=== PATIENT | male | born 1970 | race African-American/Black ===

== ENCOUNTER 2017-07-29 11:18 | Inpatient (IN) | payer MEDICAID ==
[2017-07-29] MEDS ORDERED: Aspirin 81 MG Tab.Chew PO ONE (11:32)
--- NOTE | 2017-07-29 11:32 | EDM.PDOC ---
ED HPI GENERAL MEDICAL PROBLEM - General Chief Complaint: Chest Pain Stated Complaint: CHEST PAIN VIA [facility] Time Seen by Provider: 07/29/17 11:35 Source of Information: Reports: Patient, EMS Notes Reviewed History Limitations: Reports: No Limitations - History of Present Illness INITIAL COMMENTS - FREE TEXT/NARRATIVE: pt has a recent history of a pneumonia. He is on augmentin for thAt. He has been at [facility] for 1 day, He states he has not been eating or drinking. The pneumonia was possibly caused by asperation Onset: Today, Other (left sided chest pain. ) Duration: Hour(s): Location: Reports: Chest Associated Symptoms: Reports: Chest Pain, Cough, Shortness of Breath, Other ( chest congestion) Anterior Chest Pain Score (Numeric/FACES): 7 - Related Data Allergies Allergy/AdvReac Type Severity Reaction Status Date / Time codeine Allergy Hives Verified 07/29/17 18:52 Home Meds: Home Meds Amoxicillin/Potassium Clav [Augmentin 875-125 Tablet] 875 mg PO BID 07/29/17 [ History] Gabapentin [Neurontin] 900 mg PO TID 07/29/17 [History] QUEtiapine Fumarate [Seroquel] 300 mg PO BID 07/29/17 [History] ED ROS GENERAL - Review of Systems Review Of Systems: See Below Constitutional: Reports: Decreased Appetite, Other (pt has not been eating or drinking in the hosp or at [place]. ) HEENT: Reports: No Symptoms Respiratory: Reports: Shortness of Breath Cardiovascular: Reports: Chest Pain, Other ( Hurts worse when he has ) Endocrine: Reports: No Symptoms GI/Abdominal: Reports: Decreased Appetite, Nausea : Reports: No Symptoms Musculoskeletal: Reports: No Symptoms Skin: Reports: No Symptoms Neurological: Reports: No Symptoms Psychiatric: Reports: Anxiety Hematologic/Lymphatic: Reports: No Symptoms ED EXAM, GENERAL - Physical Exam Exam: See Below Free Text/Narrative:: Pt arrived with left sided chest pain. He has been given nitro and torodol with no relieve. He is feeling congestion in his chest and is feeling somewhat sob. he is not eating or drinking. He is in treatment for herion abuse. Exam Limited By: No Limitations General Appearance: Alert, Anxious, Moderate Distress Ears: Normal TMs Nose: Normal Inspection Throat/Mouth: Normal Inspection Head: Atraumatic Respiratory/Chest: No Respiratory Distress Cardiovascular: Regular Rate, Rhythm GI/Abdominal: Soft, Non-Tender (Male) Exam: Deferred Rectal (Males) Exam: Deferred Back Exam: Normal Inspection Extremities: Normal Inspection Neurological: Alert, Oriented, Normal Cognition Psychiatric: Depressed Mood Course - Vital Signs Last Recorded V/S: Last Vital Signs Temp 37.0 C 07/30/17 07:09 Pulse 99 07/30/17 07:09 Resp 24 H 07/30/17 07:09 BP 144/104 H 07/30/17 07:09 Pulse Ox 96 07/30/17 07:09 - Orders/Labs/Meds Orders: Active Orders 24 hr Category Date Time Status RT Aerosol Therapy [RC] ASDIRECTED Care 07/29/17 13:16 Active Sodium Chloride 0.9% [Normal Saline] 1,000 ml Med 07/29/17 13:15 Active IV ASDIRECTED Sodium Chloride 0.9% [Normal Saline] 1,000 ml Med 07/29/17 16:15 Active IV ASDIRECTED EKG 12 Lead [EK] Routine Ther 07/29/17 11:30 Ordered Medication Orders Enoxaparin Sodium (Lovenox) 40 mg SUBCUT QD COUNTS INCLUDE 234 BEDS AT THE [facility] Gabapentin (Neurontin) 900 mg PO TID COUNTS INCLUDE 234 BEDS AT THE [facility] Last Admin: 07/29/17 20:30 Dose: 900 mg Sodium Chloride (Normal Saline) 1,000 mls @ 500 mls/hr IV ASDIRECTED COUNTS INCLUDE 234 BEDS AT THE [facility] Last Admin: 07/29/17 13:18 Dose: 500 mls/hr Sodium Chloride (Normal Saline) 1,000 mls @ 150 mls/hr IV ASDIRECTED COUNTS INCLUDE 234 BEDS AT THE [facility] Last Admin: 07/29/17 16:15 Dose: 150 mls/hr Ceftriaxone Sodium 1 gm/ (Sodium Chloride) 50 mls @ 100 mls/hr IV Q24H COUNTS INCLUDE 234 BEDS AT THE [facility] Last Admin: 07/29/17 20:35 Dose: 100 mls/hr Levofloxacin/Dextrose 500 mg/ (Premix) 100 mls @ 100 mls/hr IV Q24H COUNTS INCLUDE 234 BEDS AT THE [facility] Last Admin: 07/29/17 20:42 Dose: 100 mls/hr Lorazepam (Ativan) 0 mg PO ASDIRECTED QUEENIE PRN Reason: Protocol Last Admin: 07/30/17 00:27 Dose: 1 mg Lorazepam (Ativan) 0 mg IV ASDIRECTED QUEENIE PRN Reason: Protocol Last Admin: 07/30/17 05:46 Dose: 2 mg Admin: 07/30/17 03:32 Dose: 2 mg Admin: 07/30/17 00:59 Dose: 2 mg Quetiapine Fumarate (Seroquel) 300 mg PO BID QUEENIE Last Admin: 07/29/17 20:42 Dose: 300 mg Sodium Chloride (Saline Flush) 10 ml FLUSH ASDIRECTED PRN PRN Reason: Keep Vein Open Labs: Laboratory Tests 07/29/17 07/29/17 07/29/17 Range/Units 11:35 11:35 11:35 WBC 8.5 (4.5-11.0) K/uL RBC 5.56 (4.30-5.90) M/uL Hgb 14.8 (12.0-15.0) g/dL Hct 46.3 (40.0-54.0) % MCV 83 (80-98) fL MCH 27 (27-31) pg MCHC 32 (32-36) % Plt Count 335 (150-400) K/uL Neut % (Auto) 65 (36-66) % Lymph % (Auto) 19 L (24-44) % [place] % (Auto) 13 H (2-6) % Eos % (Auto) 1 L (2-4) % Baso % (Auto) 2 H (0-1) % Sodium 135 L (140-148) mmol/L Potassium 4.0 (3.6-5.2) mmol/L Chloride 101 (100-108) mmol/L Carbon Dioxide 25 (21-32) mmol/L Anion Gap 13.0 (5.0-14.0) mmol/L BUN 8 (7-18) mg/dL Creatinine 1.1 (0.8-1.3) mg/dL Est Cr Clr Drug Dosing 94.83 mL/min Estimated GFR (MDRD) > 60 (>60) Glucose 138 H (74-106) mg/dL Calcium 8.8 (8.5-10.1) mg/dL Total Bilirubin 0.4 (0.2-1.0) mg/dL AST 39 H (15-37) U/L ALT 55 (12-78) U/L Alkaline Phosphatase 168 H (46-116) U/L Creatine Kinase 278 (39-308) U/L Troponin I 0.023 (0.000-0.056) ng/mL C-Reactive Protein (0.0-0.3) mg/dL Total Protein 9.2 H (6.4-8.2) g/dL Albumin 3.0 L (3.4-5.0) g/dL Globulin 6.2 H (2.3-3.5) g/dL Albumin/Globulin Ratio 0.5 L (1.2-2.2) 07/29/17 07/29/17 Range/Units 11:55 14:45 WBC (4.5-11.0) K/uL RBC (4.30-5.90) M/uL Hgb (12.0-15.0) g/dL Hct (40.0-54.0) % MCV (80-98) fL MCH (27-31) pg MCHC (32-36) % Plt Count (150-400) K/uL Neut % (Auto) (36-66) % Lymph % (Auto) (24-44) % [place] % (Auto) (2-6) % Eos % (Auto) (2-4) % Baso % (Auto) (0-1) % Sodium (140-148) mmol/L Potassium (3.6-5.2) mmol/L Chloride (100-108) mmol/L Carbon Dioxide (21-32) mmol/L Anion Gap (5.0-14.0) mmol/L BUN (7-18) mg/dL Creatinine (0.8-1.3) mg/dL Est Cr Clr Drug Dosing mL/min Estimated GFR (MDRD) (>60) Glucose (74-106) mg/dL Calcium (8.5-10.1) mg/dL Total Bilirubin (0.2-1.0) mg/dL AST (15-37) U/L ALT (12-78) U/L Alkaline Phosphatase (46-116) U/L Creatine Kinase (39-308) U/L Troponin I 0.024 (0.000-0.056) ng/mL C-Reactive Protein 0.66 H (0.0-0.3) mg/dL Total Protein (6.4-8.2) g/dL Albumin (3.4-5.0) g/dL Globulin (2.3-3.5) g/dL Albumin/Globulin Ratio (1.2-2.2) Meds: Medications Generic Name Dose Route Start Last Admin Trade Name Li PRN Reason Stop Dose Admin Enoxaparin Sodium 40 mg 07/30/17 09:00 Lovenox SUBCUT QD QUEENIE Gabapentin 900 mg 07/29/17 21:00 07/29/17 20:30 Neurontin PO 900 mg TID QUEENIE Administration Sodium Chloride 1,000 mls @ 500 mls/hr 07/29/17 13:15 07/29/17 13:18 Normal Saline IV 500 mls/hr ASDIRECTED QUEENIE Administration Sodium Chloride 1,000 mls @ 150 mls/hr 07/29/17 16:15 07/29/17 16:15 Normal Saline IV 150 mls/hr ASDIRECTED QUEENIE Administration Ceftriaxone Sodium 1 gm/ 50 mls @ 100 mls/hr 07/29/17 18:30 07/29/17 20:35 Sodium Chloride IV 100 mls/hr Q24H QUEENIE Administration Levofloxacin/Dextrose 500 mg/ 100 mls @ 100 mls/hr 07/29/17 19:30 07/29/17 20 :42 Premix IV 100 mls/hr Q24H QUEENIE Administration Lorazepam 0 mg 07/30/17 00:15 07/30/17 00:27 Ativan PO 1 mg ASDIRECTED QUEENIE Administration Protocol Lorazepam 0 mg 07/30/17 00:15 07/30/17 05:46 Ativan IV 2 mg ASDIRECTED QUEENIE Administration Protocol Quetiapine Fumarate 300 mg 07/29/17 21:00 07/29/17 20:42 Seroquel PO 300 mg BID QUEENIE Administration Sodium Chloride 10 ml 07/29/17 18:23 Saline Flush FLUSH ASDIRECTED PRN Keep Vein Open Discontinued Medications Generic Name Dose Route Start Last Admin Trade Name Li PRN Reason Stop Dose Admin Albuterol 2.5 mg 07/29/17 13:16 07/29/17 13:49 Proventil Neb Soln NEB 07/29/17 13:17 2.5 mg ONETIME ONE Administration Aspirin 324 mg 07/29/17 11:32 07/29/17 12:34 Aspirin PO 07/29/17 11:33 Not Given ONETIME ONE Al Hydroxide/Mg Hydroxide 15 0 ml 07/29/17 17:10 07/29/17 17:33 ml/ Lidocaine HCl 15 ml PO 07/29/17 17:11 30 ml ONETIME ONE Administration Ketorolac Tromethamine 30 mg 07/29/17 13:14 07/29/17 13:25 Toradol IVPUSH 07/29/17 13:15 30 mg ONETIME ONE Administration Lorazepam 0.5 mg 07/29/17 14:41 07/29/17 16:13 Ativan IVPUSH 07/29/17 14:42 0.5 mg ONETIME ONE Administration Nitroglycerin 0.4 mg 07/29/17 14:46 07/29/17 16:14 Nitrostat SL 07/29/17 14:47 0.4 mg ONETIME ONE Administration Quetiapine Fumarate Confirm 07/29/17 20:28 07/29/17 20:42 Seroquel Administered 07/29/17 20:29 Not Given Dose 300 mg .ROUTE .[facility] ONE - Re-Assessments/Exams Free Text/Narrative Re-Assessment/Exam: 07/29/17 14:54 pt had no acute changes on his ekg. his cardiac enzymes are normal. his wbc is normal and his chest xray does not show a imnfiltrate. He continues to have pain at a 6. He will be given nitro to see if he gets relief. Because of the persistence of his pain Dr Narayanan was consulted for a possible observation. 07/30/17 07:45 Departure - Departure Time of Disposition: 07:10 Disposition: Admitted As Inpatient 67 Condition: Fair Clinical Impression: Atypical chest pain, Heroin addiction - My Orders Last 24 Hours: My Active Orders 07/29/17 11:30 EKG 12 Lead [EK] Routine 07/29/17 13:15 Sodium Chloride 0.9% [Normal Saline] 1,000 ml IV ASDIRECTED 07/29/17 13:16 RT Aerosol Therapy [RC] ASDIRECTED 07/29/17 16:15 Sodium Chloride 0.9% [Normal Saline] 1,000 ml IV ASDIRECTED - Assessment/Plan Last 24 Hours: My Active Orders 07/29/17 11:30 EKG 12 Lead [EK] Routine 07/29/17 13:15 Sodium Chloride 0.9% [Normal Saline] 1,000 ml IV ASDIRECTED 07/29/17 13:16 RT Aerosol Therapy [RC] ASDIRECTED 07/29/17 16:15 Sodium Chloride 0.9% [Normal Saline] 1,000 ml IV ASDIRECTED
--- NOTE | 2017-07-29 12:46 | CR ---
Chest 2V INDICATION: left sided chest pain. FINDINGS: Normal heart size. Lungs are clear. Postoperative changes right shoulder. Chest otherwise n egative.
[2017-07-29] MEDS ORDERED: Ketorolac 30 MG/ML SDV IVPUSH ONE (13:14)
[2017-07-29] MEDS ORDERED: Sodium Chloride 0.9% 1,000 ML IV SCH (13:15)
[2017-07-29] MEDS ORDERED: Albuterol 0.083% 2.5 MG/3 ML Neb Soln NEB ONE (13:16)
[2017-07-29] MEDS ORDERED: LORazepam 2 MG/ML MDV IVPUSH ONE (14:41)
[2017-07-29] MEDS ORDERED: Nitroglycerin 0.4 MG Tab.SL SL ONE (14:46)
[2017-07-29] MEDS: Sodium Chloride 0.9% 1,000 ML IV SCH (16:15)
[2017-07-29] MEDS ORDERED: Alum Hydrox/Mag Hydrox/Simeth 15 ML, Lidocaine 2% 15 ML PO ONE ×2 (17:10)
--- NOTE | 2017-07-29 18:08 | PCM.HP ---
H&P History of Present Illness - General Date of Service: 07/29/17 Source of Information: Patient History Limitations: Reports: No Limitations - History of Present Illness Initial Comments - Free Text/Narative: Having heavy chest pain for 5 hrs. Worse with breathing with a pain level 8/ 10. Has a history of a [place] and was air lifted to [place]. He has no knowledge of what they did in [place]. he has no momory of if thy had an angiogram but they did not do surgery. He had nausea and vomited. Onset of Symptoms: Reports: Today, Sudden Duration of Symptoms: Reports: Hour(s): Severity: Severe Improves with: Reports: Rest Worsens with: Reports: Breathing, Other (or coughing) Associated Symptoms: Reports: Chest Pain, Nausea/Vomiting Anterior Chest Pain Score (Numeric/FACES): 7 - Related Data Allergies/Adverse Reactions: Allergies Allergy/AdvReac Type Severity Reaction Status Date / Time codeine Allergy Hives Verified 07/29/17 18:52 Home Medications: Home Meds Amoxicillin/Potassium Clav [Augmentin 875-125 Tablet] 875 mg PO BID 07/29/17 [ History] Gabapentin [Neurontin] 900 mg PO TID 07/29/17 [History] QUEtiapine Fumarate [Seroquel] 300 mg PO BID 07/29/17 [History] Past Medical History Cardiovascular History: Reports: Arrhythmia Respiratory History: Reports: Other (See Below) Other Respiratory History: recently in hospital for aspiration pneumonia Gastrointestinal History: Reports: GERD Musculoskeletal History: Reports: Amputation Psychiatric History: Reports: ADD, ADHD, Addiction, Other (See Below) Other Psychiatric History: heroine and mariujuana addiction - Past Surgical History GI Surgical History: Reports: None Musculoskeletal Surgical History: Reports: Amputation Other Musculoskeletal Surgeries/Procedures:: 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 Social & Family History - Family History Family Medical History: Noncontributory - Tobacco Use Smoking Status *Q: Current Every Day Smoker Years of Tobacco use: 35 Packs/Tins Daily: 1 Second Hand Smoke Exposure: Yes - Caffeine Use Caffeine Use: Reports: None - Recreational Drug Use Recreational Drug Use: Yes Drug Use in Last 12 Months: Yes Recreational Drug Type: Reports: Heroin, Marijuana/Hashish Recreational Drug Use Frequency: Daily H&P Review of Systems - Review of Systems: Review Of Systems: See Below General: Reports: No Symptoms HEENT: Reports: No Symptoms Pulmonary: Reports: Shortness of Breath Cardiovascular: Reports: Chest Pain, Palpitations, Dyspnea on Exertion Gastrointestinal: Reports: Abdominal Pain, Diarrhea, Nausea Genitourinary: Reports: Retention Musculoskeletal: Reports: Foot Pain Skin: Reports: No Symptoms Neurological: Reports: Difficulty Walking, Gait Disturbance Exam - Exam Exam: See Below - Vital Signs Vital Signs: Last Vital Signs Temp 99.0 F 07/29/17 12:16 Pulse 67 07/29/17 15:59 Resp 16 07/29/17 14:00 BP 150/78 H 07/29/17 16:14 Pulse Ox 97 07/29/17 15:59 Weight: 180 lb - Exam General: Alert, Oriented, Moderate Distress HEENT: PERRLA, Hearing Intact, Mucosa Moist & [place], Nares Patent, Normal Nasal Septum, Posterior Pharynx Clear, Conjunctiva Clear, EOMI, EACs Clear, TMs Clear Neck: Supple, Trachea Midline, 2 Lungs: Rhonchi Cardiovascular: Regular Rate, Regular Rhythm GI/Abdominal Exam: Normal Bowel Sounds, Soft, Non-Tender, No Organomegaly, No Distention, No Abnormal Bruit, No Mass, Pelvis Stable Extremities: Other (Loss of right foot due to infection of the bone.) Peripheral Pulses: 1+: Radial (L), Radial (R) Skin: Warm, Dry, Intact Neuro Extensive - Mental Status: Oriented x3, Normal Cognition, Memory Intact DTR: 1+: Bicep (L), Bicep (R) Psychiatric: Alert, Normal Affect, Normal Mood - Patient Data Lab Results Last 24 hrs: Laboratory Results - last 24 hr 07/29/17 07/29/17 07/29/17 Range/Units 11:35 11:35 11:35 WBC 8.5 (4.5-11.0) K/uL RBC 5.56 (4.30-5.90) M/uL Hgb 14.8 (12.0-15.0) g/dL Hct 46.3 (40.0-54.0) % MCV 83 (80-98) fL MCH 27 (27-31) pg MCHC 32 (32-36) % Plt Count 335 (150-400) K/uL Neut % (Auto) 65 (36-66) % Lymph % (Auto) 19 L (24-44) % [place] % (Auto) 13 H (2-6) % Eos % (Auto) 1 L (2-4) % Baso % (Auto) 2 H (0-1) % Sodium 135 L (140-148) mmol/L Potassium 4.0 (3.6-5.2) mmol/L Chloride 101 (100-108) mmol/L Carbon Dioxide 25 (21-32) mmol/L Anion Gap 13.0 (5.0-14.0) mmol/L BUN 8 (7-18) mg/dL Creatinine 1.1 (0.8-1.3) mg/dL Est Cr Clr Drug Dosing 94.83 mL/min Estimated GFR (MDRD) > 60 (>60) Glucose 138 H (74-106) mg/dL Calcium 8.8 (8.5-10.1) mg/dL Total Bilirubin 0.4 (0.2-1.0) mg/dL AST 39 H (15-37) U/L ALT 55 (12-78) U/L Alkaline Phosphatase 168 H (46-116) U/L Creatine Kinase 278 (39-308) U/L Troponin I 0.023 (0.000-0.056) ng/mL C-Reactive Protein (0.0-0.3) mg/dL Total Protein 9.2 H (6.4-8.2) g/dL Albumin 3.0 L (3.4-5.0) g/dL Globulin 6.2 H (2.3-3.5) g/dL Albumin/Globulin Ratio 0.5 L (1.2-2.2) 07/29/17 07/29/17 Range/Units 11:55 14:45 WBC (4.5-11.0) K/uL RBC (4.30-5.90) M/uL Hgb (12.0-15.0) g/dL Hct (40.0-54.0) % MCV (80-98) fL MCH (27-31) pg MCHC (32-36) % Plt Count (150-400) K/uL Neut % (Auto) (36-66) % Lymph % (Auto) (24-44) % [place] % (Auto) (2-6) % Eos % (Auto) (2-4) % Baso % (Auto) (0-1) % Sodium (140-148) mmol/L Potassium (3.6-5.2) mmol/L Chloride (100-108) mmol/L Carbon Dioxide (21-32) mmol/L Anion Gap (5.0-14.0) mmol/L BUN (7-18) mg/dL Creatinine (0.8-1.3) mg/dL Est Cr Clr Drug Dosing mL/min Estimated GFR (MDRD) (>60) Glucose (74-106) mg/dL Calcium (8.5-10.1) mg/dL Total Bilirubin (0.2-1.0) mg/dL AST (15-37) U/L ALT (12-78) U/L Alkaline Phosphatase (46-116) U/L Creatine Kinase (39-308) U/L Troponin I 0.024 (0.000-0.056) ng/mL C-Reactive Protein 0.66 H (0.0-0.3) mg/dL Total Protein (6.4-8.2) g/dL Albumin (3.4-5.0) g/dL Globulin (2.3-3.5) g/dL Albumin/Globulin Ratio (1.2-2.2) Result Diagrams: 07/30/17 05:55 07/30/17 05:55 *Q Meaningful Use (ADM) - VTE *Q VTE Criteria *Q: - Stroke *Q Stroke Criteria *Q: - AMI *Q AMI Criteria *Q: Problem List Initiated/Reviewed/Updated: Yes Orders Last 24hrs: Active Orders 24 hr Category Date Time Status EKG Documentation Completion [RC] ASDIRECTED Care 07/29/17 11:30 Active RT Aerosol Therapy [RC] ASDIRECTED Care 07/29/17 13:16 Active DRUG SCREEN, URINE [URCHEM] Stat Lab 07/29/17 11:31 Uncollected UA W/MICROSCOPIC [URIN] Urgent Lab 07/29/17 11:29 Uncollected Sodium Chloride 0.9% [Normal Saline] 1,000 ml Med 07/29/17 13:15 Active IV ASDIRECTED Sodium Chloride 0.9% [Normal Saline] 1,000 ml Med 07/29/17 16:15 Active IV ASDIRECTED EKG 12 Lead [EK] Routine Ther 07/29/17 11:30 Ordered Medication Orders Sodium Chloride (Normal Saline) 1,000 mls @ 500 mls/hr IV ASDIRECTED [facility] Last Admin: 07/29/17 13:18 Dose: 500 mls/hr Sodium Chloride (Normal Saline) 1,000 mls @ 150 mls/hr IV ASDIRECTED [facility] Last Admin: 07/29/17 16:15 Dose: 150 mls/hr Assessment/Plan Comment:: Assessment/plan: Angina- non cardiac. I feel secondary to lung problems and withdraw. He does have a history of a heart problem of unknown severity #2. Bipolar disorder: Will continue with seroquel. #3. Loss of right foot. having pain will continue with Gabapentin. #4. Drug Addition: Heroin 1/2 gram daily IV and or PO. #5. History of Pneumonia. Om Amox.
[2017-07-29] MEDS ORDERED: Sodium Chloride 0.9% 10 ML Syringe FLUSH PRN (18:23)
[2017-07-29] MEDS ORDERED: QUEtiapine 100 MG Tab ONE (20:28)
[2017-07-29] MEDS: Gabapentin 300 MG Cap PO SCH (20:30)
[2017-07-29] MEDS: cefTRIAXone 1 GM in Sodium Chloride 0.9% 50 ML IV SCH (20:35)
[2017-07-29] MEDS: Levofloxacin/Dextrose 5%-Water 500 MG in Premix Bag 1 BAG IV SCH (20:42)
[2017-07-30] MEDS: LORazepam 1 MG Tab PO SCH ×4 (00:27→20:38)
[2017-07-30] MEDS: LORazepam 2 MG/ML MDV IV SCH ×4 (00:59→22:01)
[2017-07-30] MEDS: cloNIDine 0.1 MG Tab PO PRN ×2 (09:26→14:05)
[2017-07-30] MEDS: Gabapentin 300 MG Cap PO SCH ×3 (09:26→20:37)
[2017-07-30] MEDS: Enoxaparin 40 MG/0.4 ML Syringe SUBCUT SCH (10:03)
--- NOTE | 2017-07-30 13:19 | PCM.PN ---
- General Info Date of Service: 07/30/17 Admission Dx/Problem (Free Text): He has and is having withdrawal reactions from Heroin having abdominal pain and anxiety. Functional Status: Reports: Pain Controlled - Review of Systems General: Reports: Weakness HEENT: Reports: No Symptoms Pulmonary: Reports: Cough Cardiovascular: Reports: No Symptoms Gastrointestinal: Reports: Abdominal Pain Genitourinary: Reports: No Symptoms Musculoskeletal: Reports: No Symptoms Skin: Reports: No Symptoms Neurological: Reports: No Symptoms Psychiatric: Reports: Depression - Patient Data Vitals - Most Recent: Last Vital Signs Temp 99 F 07/30/17 11:44 Pulse 110 H 07/30/17 11:44 Resp 28 H 07/30/17 11:44 BP 143/93 H 07/30/17 11:44 Pulse Ox 97 07/30/17 11:44 Weight - Most Recent: 177 lb 12.8 oz I&O - Last 24 Hours: Intake & Output 07/29/17 07/30/17 07/30/17 22:59 06:59 14:59 Intake Total 150 864 720 Output Total 300 2000 1225 Balance -150 -6573 -569 Lab Results Last 24 Hours: Laboratory Results - last 24 hr 07/29/17 07/29/17 07/30/17 Range/Units 20:47 20:47 05:55 WBC 10.1 (4.5-11.0) K/uL RBC 5.16 (4.30-5.90) M/uL Hgb 13.7 (12.0-15.0) g/dL Hct 42.8 (40.0-54.0) % MCV 83 (80-98) fL MCH 27 (27-31) pg MCHC 32 (32-36) % Plt Count 306 (150-400) K/uL Neut % (Auto) 65 (36-66) % Lymph % (Auto) 20 L (24-44) % Dolores % (Auto) 14 H (2-6) % Eos % (Auto) 1 L (2-4) % Baso % (Auto) 1 (0-1) % Sodium (140-148) mmol/L Potassium (3.6-5.2) mmol/L Chloride (100-108) mmol/L Carbon Dioxide (21-32) mmol/L Anion Gap (5.0-14.0) mmol/L BUN (7-18) mg/dL Creatinine (0.8-1.3) mg/dL Est Cr Clr Drug Dosing mL/min Estimated GFR (MDRD) (>60) Glucose (74-106) mg/dL Calcium (8.5-10.1) mg/dL Urine Color [place] Urine Appearance Clear Urine pH 9.0 H (4.5-8.0) Ur Specific [place] 1.015 (1.008-1.030) Urine Protein Negative (NEGATIVE) mg/dL Urine Glucose (UA) Normal (NEGATIVE) mg/dL Urine Ketones Negative (NEGATIVE) mg/dL Urine Occult Blood Negative (NEGATIVE) Urine Nitrite Negative (NEGAITVE) Urine Bilirubin Negative (NEGATIVE) Urine Urobilinogen Normal (NORMAL) mg/dL Ur Leukocyte Esterase Negative (NEGATIVE) Urine RBC 0-5 (0-5) Urine WBC 0-5 (0-5) Ur Epithelial Cells Few Amorphous Sediment Few Urine Bacteria Rare Urine Mucus Numerous Urine Opiates Screen Positive H (NEGATIVE) Ur Oxycodone Screen Negative (NEGATIVE) Urine Methadone Screen Negative (NEGATIVE) Ur Propoxyphene Screen Negative (NEGATIVE) Ur Barbiturates Screen Negative (NEGATIVE) Ur Tricyclics Screen Negative (NEGATIVE) Ur Phencyclidine Scrn Negative (NEGATIVE) Ur Amphetamine Screen Negative (NEGATIVE) U Methamphetamines Scrn Negative (NEGATIVE) Urine MDMA Screen Negative (NEGATIVE) U Benzodiazepines Scrn Positive H (NEGATIVE) U Cocaine Metab Screen Negative (NEGATIVE) U Marijuana (THC) Screen Positive H (NEGATIVE) 07/30/17 Range/Units 05:55 WBC (4.5-11.0) K/uL RBC (4.30-5.90) M/uL Hgb (12.0-15.0) g/dL Hct (40.0-54.0) % MCV (80-98) fL MCH (27-31) pg MCHC (32-36) % Plt Count (150-400) K/uL Neut % (Auto) (36-66) % Lymph % (Auto) (24-44) % Dolores % (Auto) (2-6) % Eos % (Auto) (2-4) % Baso % (Auto) (0-1) % Sodium 138 L (140-148) mmol/L Potassium 3.8 (3.6-5.2) mmol/L Chloride 107 (100-108) mmol/L Carbon Dioxide 24 (21-32) mmol/L Anion Gap 10.8 (5.0-14.0) mmol/L BUN 8 (7-18) mg/dL Creatinine 0.8 (0.8-1.3) mg/dL Est Cr Clr Drug Dosing 129.77 mL/min Estimated GFR (MDRD) > 60 (>60) Glucose 113 H (74-106) mg/dL Calcium 8.3 L (8.5-10.1) mg/dL Urine Color Urine Appearance Urine pH (4.5-8.0) Ur Specific [place] (1.008-1.030) Urine Protein (NEGATIVE) mg/dL Urine Glucose (UA) (NEGATIVE) mg/dL Urine Ketones (NEGATIVE) mg/dL Urine Occult Blood (NEGATIVE) Urine Nitrite (NEGAITVE) Urine Bilirubin (NEGATIVE) Urine Urobilinogen (NORMAL) mg/dL Ur Leukocyte Esterase (NEGATIVE) Urine RBC (0-5) Urine WBC (0-5) Ur Epithelial Cells Amorphous Sediment Urine Bacteria Urine Mucus Urine Opiates Screen (NEGATIVE) Ur Oxycodone Screen (NEGATIVE) Urine Methadone Screen (NEGATIVE) Ur Propoxyphene Screen (NEGATIVE) Ur Barbiturates Screen (NEGATIVE) Ur Tricyclics Screen (NEGATIVE) Ur Phencyclidine Scrn (NEGATIVE) Ur Amphetamine Screen (NEGATIVE) U Methamphetamines Scrn (NEGATIVE) Urine MDMA Screen (NEGATIVE) U Benzodiazepines Scrn (NEGATIVE) U Cocaine Metab Screen (NEGATIVE) U Marijuana (THC) Screen (NEGATIVE) Med Orders - Current: Current Medications Clonidine HCl (Catapres) 0.1 mg PO Q4H PRN PRN Reason: Withdrawal Symptoms Last Admin: 07/30/17 09:26 Dose: 0.1 mg Enoxaparin Sodium (Lovenox) 40 mg SUBCUT QD [facility] Last Admin: 07/30/17 10:03 Dose: Not Given Gabapentin (Neurontin) 900 mg PO TID [facility] Last Admin: 07/30/17 09:26 Dose: 900 mg Sodium Chloride (Normal Saline) 1,000 mls @ 500 mls/hr IV ASDIRECTED [facility] Last Admin: 07/29/17 13:18 Dose: 500 mls/hr Sodium Chloride (Normal Saline) 1,000 mls @ 150 mls/hr IV ASDIRECTED [facility] Last Admin: 07/29/17 16:15 Dose: 150 mls/hr Ceftriaxone Sodium 1 gm/ (Sodium Chloride) 50 mls @ 100 mls/hr IV Q24H [facility] Last Admin: 07/29/17 20:35 Dose: 100 mls/hr Levofloxacin/Dextrose 500 mg/ (Premix) 100 mls @ 100 mls/hr IV Q24H [facility] Last Admin: 07/29/17 20:42 Dose: 100 mls/hr Lorazepam (Ativan) 0 mg PO ASDIRECTED [facility] PRN Reason: Protocol Last Admin: 07/30/17 09:45 Dose: 2 mg Lorazepam (Ativan) 0 mg IV ASDIRECTED [facility] PRN Reason: Protocol Last Admin: 07/30/17 05:46 Dose: 2 mg Ondansetron HCl (Zofran Odt) 4 mg PO Q4H PRN PRN Reason: Nausea/Vomiting Quetiapine Fumarate (Seroquel) 300 mg PO BID [facility] Last Admin: 07/30/17 09:27 Dose: 300 mg Sodium Chloride (Saline Flush) 10 ml FLUSH ASDIRECTED PRN PRN Reason: Keep Vein Open Discontinued Medications Albuterol (Proventil Neb Soln) 2.5 mg NEB ONETIME ONE Stop: 07/29/17 13:17 Last Admin: 07/29/17 13:49 Dose: 2.5 mg Aspirin (Aspirin) 324 mg PO ONETIME ONE Stop: 07/29/17 11:33 Last Admin: 07/29/17 12:34 Dose: Not Given Al Hydroxide/Mg Hydroxide 15 (ml/ Lidocaine HCl 15 ml) 0 ml PO ONETIME ONE Stop: 07/29/17 17:11 Last Admin: 07/29/17 17:33 Dose: 30 ml Ketorolac Tromethamine (Toradol) 30 mg IVPUSH ONETIME ONE Stop: 07/29/17 13:15 Last Admin: 07/29/17 13:25 Dose: 30 mg Lorazepam (Ativan) 0.5 mg IVPUSH ONETIME ONE Stop: 07/29/17 14:42 Last Admin: 07/29/17 16:13 Dose: 0.5 mg Nitroglycerin (Nitrostat) 0.4 mg SL ONETIME ONE Stop: 07/29/17 14:47 Last Admin: 07/29/17 16:14 Dose: 0.4 mg Quetiapine Fumarate (Seroquel) Confirm Administered Dose 300 mg .ROUTE .STK-MED ONE Stop: 07/29/17 20:29 Last Admin: 07/29/17 20:42 Dose: Not Given - Exam General: Alert, Oriented HEENT: Pupils Equal, Pupils Reactive, EOMI, Mucous Membr. Moist/[place] Neck: Supple Lungs: Clear to Auscultation, Normal Respiratory Effort Cardiovascular: Regular Rate, Regular Rhythm GI/Abdominal Exam: Normal Bowel Sounds, Soft, Non-Tender, No Organomegaly, No Distention, No Abnormal Bruit, No Mass, Pelvis Stable Extremities: Normal Inspection, Normal Range of Motion, Non-Tender, No Pedal Edema, Normal Capillary Refill Peripheral Pulses: 1+: Radial (L), Radial (R) Skin: Warm, Dry, Intact - Problem List Review Problem List Initiated/Reviewed/Updated: Yes - My Orders Last 24 Hours: My Active Orders 07/29/17 18:30 cefTRIAXone [Rocephin] 1 gm Sodium Chloride 0.9% [Normal Saline] 50 ml IV Q24H 07/29/17 18:31 RT Acapella [RESPCARE] Routine 07/29/17 18:33 CULTURE RESPIRATORY + SMEAR [RM] Routine 07/29/17 19:30 Levofloxacin/Dextrose 5%-Water [Levaquin in D5W 500 MG/100 ML] 500 mg Premix Bag 1 bag IV Q24H 07/29/17 21:00 Gabapentin [Neurontin] 900 mg PO TID QUEtiapine [SEROquel] 300 mg PO BID 07/30/17 00:13 CIWAA Assessment [RC] Q4H 07/30/17 00:15 Notify Provider [RC] PRN LORazepam [Ativan] See Protocol IV ASDIRECTED LORazepam [Ativan] See Protocol PO ASDIRECTED 07/30/17 09:11 cloNIDine [Catapres] 0.1 mg PO Q4H PRN 07/30/17 09:13 Vital Signs [RC] Q4H 07/30/17 10:20 Ondansetron [Zofran ODT] 4 mg PO Q4H PRN - Plan Plan:: Assessment/plan: Angina- non cardiac. I feel secondary to lung problems and withdraw. He does have a history of a heart problem of unknown severity #2. Bipolar disorder: Will continue with seroquel. #3. Loss of right foot. having pain will continue with Gabapentin. #4. Drug Addition: Heroin 1/2 gram daily IV and or PO. #5. History of Pneumonia. Will continue with Rocephin and Levaquin. His lungs have improved significantly.
[2017-07-30] MEDS: cefTRIAXone 1 GM in Sodium Chloride 0.9% 50 ML IV SCH (18:21)
[2017-07-30] MEDS: Levofloxacin/Dextrose 5%-Water 500 MG in Premix Bag 1 BAG IV SCH (20:37)
[2017-07-31] MEDS: Sodium Chloride 0.9% 1,000 ML IV SCH ×2 (02:45→09:26)
[2017-07-31] MEDS: LORazepam 2 MG/ML MDV IV SCH (05:36)
[2017-07-31] MEDS: Enoxaparin 40 MG/0.4 ML Syringe SUBCUT SCH (08:31)
[2017-07-31] MEDS: LORazepam 1 MG Tab PO SCH ×4 (08:31→20:03)
[2017-07-31] MEDS: Gabapentin 300 MG Cap PO SCH ×3 (08:32→20:10)
--- NOTE | 2017-07-31 10:11 | CR ---
Chest 2V HISTORY: pneumonia COMPARISON: 07/29/2017 FINDINGS: Lungs appear clear and normally aerated. Cardiomediastinal silhouette is within normal limits. No vas cular redistribution or pleural fluid can be seen. Bony structures and soft tissues are unremarkable. IMPRESSION: No acute chest abnormality or significant interval change is identified.
--- NOTE | 2017-07-31 18:46 | PCM.PN ---
- General Info Date of Service: 07/31/17 Functional Status: Reports: Pain Controlled - Review of Systems General: Reports: No Symptoms HEENT: Reports: No Symptoms Pulmonary: Reports: No Symptoms Cardiovascular: Reports: No Symptoms Gastrointestinal: Reports: Abdominal Pain Genitourinary: Reports: No Symptoms Musculoskeletal: Reports: No Symptoms Skin: Reports: No Symptoms Neurological: Reports: No Symptoms Psychiatric: Reports: Anxiety, Agitation - Patient Data Vitals - Most Recent: Last Vital Signs Temp 98.8 F 07/31/17 18:02 Pulse 94 07/31/17 18:02 Resp 16 07/31/17 18:02 BP 140/85 07/31/17 18:02 Pulse Ox 100 07/31/17 18:02 Weight - Most Recent: 178 lb I&O - Last 24 Hours: Intake & Output 07/31/17 07/31/17 07/31/17 06:59 14:59 22:59 Intake Total 1334 120 240 Output Total 1425 1200 150 Balance -91 -1080 90 Med Orders - Current: Current Medications Clonidine HCl (Catapres) 0.1 mg PO Q4H PRN PRN Reason: Withdrawal Symptoms Last Admin: 07/30/17 14:05 Dose: 0.1 mg Enoxaparin Sodium (Lovenox) 40 mg SUBCUT DAILY [facility] Gabapentin (Neurontin) 900 mg PO TID [facility] Last Admin: 07/31/17 13:29 Dose: 900 mg Sodium Chloride (Normal Saline) 1,000 mls @ 150 mls/hr IV ASDIRECTED [facility] Last Admin: 07/31/17 09:26 Dose: 150 mls/hr Lorazepam (Ativan) 0 mg PO ASDIRECTED [facility] PRN Reason: Protocol Last Admin: 07/31/17 17:58 Dose: 1 mg Nicotine (Habitrol) 7 mg TRDERM DAILY [facility] Ondansetron HCl (Zofran Odt) 4 mg PO Q4H PRN PRN Reason: Nausea/Vomiting Quetiapine Fumarate (Seroquel) 300 mg PO BID [facility] Last Admin: 07/31/17 08:38 Dose: 300 mg Sodium Chloride (Saline Flush) 10 ml FLUSH ASDIRECTED PRN PRN Reason: Keep Vein Open Discontinued Medications Albuterol (Proventil Neb Soln) 2.5 mg NEB ONETIME ONE Stop: 07/29/17 13:17 Last Admin: 07/29/17 13:49 Dose: 2.5 mg Aspirin (Aspirin) 324 mg PO ONETIME ONE Stop: 07/29/17 11:33 Last Admin: 07/29/17 12:34 Dose: Not Given Al Hydroxide/Mg Hydroxide 15 (ml/ Lidocaine HCl 15 ml) 0 ml PO ONETIME ONE Stop: 07/29/17 17:11 Last Admin: 07/29/17 17:33 Dose: 30 ml Enoxaparin Sodium (Lovenox) 40 mg SUBCUT QD [facility] Last Admin: 07/31/17 08:31 Dose: 40 mg Sodium Chloride (Normal Saline) 1,000 mls @ 500 mls/hr IV ASDIRECTED [facility] Last Admin: 07/29/17 13:18 Dose: 500 mls/hr Ceftriaxone Sodium 1 gm/ (Sodium Chloride) 50 mls @ 100 mls/hr IV Q24H [facility] Last Admin: 07/30/17 18:21 Dose: 100 mls/hr Levofloxacin/Dextrose 500 mg/ (Premix) 100 mls @ 100 mls/hr IV Q24H [facility] Last Admin: 07/30/17 20:37 Dose: 100 mls/hr Ketorolac Tromethamine (Toradol) 30 mg IVPUSH ONETIME ONE Stop: 07/29/17 13:15 Last Admin: 07/29/17 13:25 Dose: 30 mg Lorazepam (Ativan) 0.5 mg IVPUSH ONETIME ONE Stop: 07/29/17 14:42 Last Admin: 07/29/17 16:13 Dose: 0.5 mg Lorazepam (Ativan) 0 mg IV ASDIRECTED [facility] PRN Reason: Protocol Last Admin: 07/31/17 05:36 Dose: 2 mg Nitroglycerin (Nitrostat) 0.4 mg SL ONETIME ONE Stop: 07/29/17 14:47 Last Admin: 07/29/17 16:14 Dose: 0.4 mg Quetiapine Fumarate (Seroquel) Confirm Administered Dose 300 mg .ROUTE .STK-MED ONE Stop: 07/29/17 20:29 Last Admin: 07/29/17 20:42 Dose: Not Given - Exam General: Alert, Oriented, Moderate Distress HEENT: Pupils Equal, Pupils Reactive, EOMI, Mucous Membr. Moist/[place] Neck: Supple Lungs: Clear to Auscultation, Normal Respiratory Effort Cardiovascular: Regular Rate, Regular Rhythm GI/Abdominal Exam: Soft Extremities: Normal Inspection, Normal Range of Motion, Non-Tender, No Pedal Edema, Normal Capillary Refill Peripheral Pulses: 1+: Radial (L), Radial (R) Skin: Warm, Dry, Intact Psy/Mental Status: Anxious, Agitated - Problem List Review Problem List Initiated/Reviewed/Updated: Yes - My Orders Last 24 Hours: My Active Orders 07/31/17 18:06 Transfer Patient (Change bed) [ADT] Routine 07/31/17 18:15 Nicotine [Habitrol] 7 mg TRDERM DAILY 07/31/17 18:16 Discontinue Saline Lock [Peripheral IV Discontinue] [OM.PC] Routine 08/01/17 08:00 Consult to Psychiatric Intake Coord [Behavioral Health Evaluation] [CONS] Routine 08/01/17 09:00 Enoxaparin [Lovenox] 40 mg SUBCUT DAILY - Plan Plan:: Assessment/plan: Angina- Resolved. #2. Bipolar disorder: Will continue with Seroquel. #3. Loss of right foot. having pain will continue with Gabapentin. #4. Drug Addition: Heroin 1/2 gram daily IV and or PO. #5. History of Pneumonia. Resolved. The CXR was negative so I feel he had more of an Acute Bronchitis. Have DC antibiotics. He became upset as [facility] would not take him back as he has detoxed presently. He threatened suicide and have now moved him down to the ICU until he is cleared by PSY in the morning.
[2017-07-31] MEDS: cloNIDine 0.1 MG Tab PO PRN (18:58)
[2017-07-31] MEDS: Nicotine 7 MG/24 Hr Patch TRDERM SCH (20:12)
[2017-07-31] MEDS: Ondansetron 4 MG Tab.DIS PO PRN (22:43)
[2017-08-01] MEDS: Ondansetron 4 MG Tab.DIS PO PRN ×2 (04:55→21:23)
[2017-08-01] MEDS: LORazepam 1 MG Tab PO SCH ×4 (05:15→22:34)
[2017-08-01] MEDS: Nicotine 7 MG/24 Hr Patch TRDERM SCH (10:27)
[2017-08-01] MEDS: Gabapentin 300 MG Cap PO SCH ×3 (10:29→20:11)
[2017-08-01] MEDS: Enoxaparin 40 MG/0.4 ML Syringe SUBCUT SCH (10:30)
--- NOTE | 2017-08-01 11:39 | PCM.PN ---
- General Info Date of Service: 08/01/17 Functional Status: Reports: Pain Controlled - Review of Systems General: Reports: No Symptoms HEENT: Reports: No Symptoms Pulmonary: Reports: No Symptoms Cardiovascular: Reports: No Symptoms Gastrointestinal: Reports: No Symptoms Genitourinary: Reports: No Symptoms Musculoskeletal: Reports: No Symptoms Skin: Reports: No Symptoms Neurological: Reports: No Symptoms Psychiatric: Reports: Anxiety - Patient Data Vitals - Most Recent: Last Vital Signs Temp 97.6 F 08/01/17 08:50 Pulse 76 08/01/17 08:50 Resp 20 08/01/17 08:50 BP 121/63 08/01/17 08:50 Pulse Ox 96 08/01/17 08:50 Weight - Most Recent: 178 lb I&O - Last 24 Hours: Intake & Output 07/31/17 08/01/17 08/01/17 22:59 06:59 14:59 Intake Total 2150 700 Output Total 1050 600 Balance 1100 100 Med Orders - Current: Current Medications Clonidine HCl (Catapres) 0.1 mg PO Q4H PRN PRN Reason: Withdrawal Symptoms Last Admin: 07/31/17 18:58 Dose: 0.1 mg Enoxaparin Sodium (Lovenox) 40 mg SUBCUT DAILY [facility] Last Admin: 08/01/17 10:30 Dose: 40 mg Gabapentin (Neurontin) 900 mg PO TID [facility] Last Admin: 08/01/17 10:29 Dose: 900 mg Sodium Chloride (Normal Saline) 1,000 mls @ 150 mls/hr IV ASDIRECTED [facility] Last Admin: 07/31/17 09:26 Dose: 150 mls/hr Lorazepam (Ativan) 0 mg PO ASDIRECTED [facility] PRN Reason: Protocol Last Admin: 08/01/17 05:15 Dose: 1 mg Nicotine (Habitrol) 7 mg TRDERM DAILY [facility] Last Admin: 08/01/17 10:27 Dose: 7 mg Ondansetron HCl (Zofran Odt) 4 mg PO Q4H PRN PRN Reason: Nausea/Vomiting Last Admin: 08/01/17 04:55 Dose: 4 mg Quetiapine Fumarate (Seroquel) 300 mg PO BID [facility] Last Admin: 08/01/17 10:27 Dose: 300 mg Ranitidine HCl (Zantac) 150 mg PO DAILY [facility] Last Admin: 08/01/17 09:55 Dose: 150 mg Sodium Chloride (Saline Flush) 10 ml FLUSH ASDIRECTED PRN PRN Reason: Keep Vein Open Discontinued Medications Albuterol (Proventil Neb Soln) 2.5 mg NEB ONETIME ONE Stop: 07/29/17 13:17 Last Admin: 07/29/17 13:49 Dose: 2.5 mg Aspirin (Aspirin) 324 mg PO ONETIME ONE Stop: 07/29/17 11:33 Last Admin: 07/29/17 12:34 Dose: Not Given Al Hydroxide/Mg Hydroxide 15 (ml/ Lidocaine HCl 15 ml) 0 ml PO ONETIME ONE Stop: 07/29/17 17:11 Last Admin: 07/29/17 17:33 Dose: 30 ml Enoxaparin Sodium (Lovenox) 40 mg SUBCUT QD [facility] Last Admin: 07/31/17 08:31 Dose: 40 mg Sodium Chloride (Normal Saline) 1,000 mls @ 500 mls/hr IV ASDIRECTED [facility] Last Admin: 07/29/17 13:18 Dose: 500 mls/hr Ceftriaxone Sodium 1 gm/ (Sodium Chloride) 50 mls @ 100 mls/hr IV Q24H [facility] Last Admin: 07/30/17 18:21 Dose: 100 mls/hr Levofloxacin/Dextrose 500 mg/ (Premix) 100 mls @ 100 mls/hr IV Q24H [facility] Last Admin: 07/30/17 20:37 Dose: 100 mls/hr Ketorolac Tromethamine (Toradol) 30 mg IVPUSH ONETIME ONE Stop: 07/29/17 13:15 Last Admin: 07/29/17 13:25 Dose: 30 mg Lorazepam (Ativan) 0.5 mg IVPUSH ONETIME ONE Stop: 07/29/17 14:42 Last Admin: 07/29/17 16:13 Dose: 0.5 mg Lorazepam (Ativan) 0 mg IV ASDIRECTED [facility] PRN Reason: Protocol Last Admin: 07/31/17 05:36 Dose: 2 mg Nitroglycerin (Nitrostat) 0.4 mg SL ONETIME ONE Stop: 07/29/17 14:47 Last Admin: 07/29/17 16:14 Dose: 0.4 mg Quetiapine Fumarate (Seroquel) Confirm Administered Dose 300 mg .ROUTE .STK-MED ONE Stop: 07/29/17 20:29 Last Admin: 07/29/17 20:42 Dose: Not Given - Exam General: Alert, Oriented Neck: Supple Lungs: Clear to Auscultation Cardiovascular: Regular Rate, Regular Rhythm GI/Abdominal Exam: Normal Bowel Sounds, Soft, Non-Tender, No Organomegaly, No Distention, No Abnormal Bruit, No Mass, Pelvis Stable Back Exam: Normal Inspection, Full Range of Motion Extremities: Other (loss of right partial foot.) - Problem List Review Problem List Initiated/Reviewed/Updated: Yes - My Orders Last 24 Hours: My Active Orders 07/31/17 18:06 Transfer Patient (Change bed) [ADT] Routine 07/31/17 18:15 Nicotine [Habitrol] 7 mg TRDERM DAILY 07/31/17 18:16 Discontinue Saline Lock [Peripheral IV Discontinue] [OM.PC] Routine 08/01/17 06:00 Ranitidine [Zantac] 150 mg PO DAILY 08/01/17 08:00 Consult to Psychiatric Intake Coord [Behavioral Health Evaluation] [CONS] Routine 08/01/17 09:00 Enoxaparin [Lovenox] 40 mg SUBCUT DAILY - Plan Plan:: Assessment/plan: Angina- Resolved. #2. Bipolar disorder: Will continue with Seroquel. #3. Loss of right foot. having pain will continue with Gabapentin. #4. Drug Addition: Heroin 1/2 gram daily IV and or PO. Detoxed #5. History of Pneumonia. Resolved. The CXR was negative so I feel he had more of an Acute Bronchitis. Have DC antibiotics. He will be seen by psy after 4pm today then [facility] will pick up operator his meds from [facility] and transfer him home. He will come back for treatment next month to [facility]
--- NOTE | 2017-08-01 11:54 | PCM.DCSUM1 ---
Discharge Summary - Hospital Course Free Text/Narrative:: He came in with a history of having heavy chest pain for 5 hrs. Worse with breathing with a pain level 8/10. Has a history of a [place] and was air lifted to [place]. He has no knowledge of what they did in [place]. He has no knowledge of an angiogram but they did not do surgery. He had nausea and vomited today and came in by ambulance from [facility]. - Discharge Data Discharge Date: 08/01/17 Discharge Disposition: Admitted As Inpatient 67 Condition: Fair - Patient Summary/Data Consults: Consultations 08/01/17 08:00 Consult to Psychiatric Intake Coord [Behavioral Health Evaluation] [CONS] Routine Comment: Physician Instructions: consult Vidya Hobbs in AM Quantity: Reason for Consult: suicidal ideation Behavioral Health Specialty: Psychiatric Evaluation Hospital Course: He had withdrawl while here and got relief from using Clonidine. He had rhonchi when he was admitted and expected Pneumonia but this was not confirmed as the chest x-ray was normal. Cultures were also normal. He became upset and threatened to jump off a bridge and held until he was cleared by [facility] to make sure he was not a suicidal risk. 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 - Patient Instructions Diet: Heart Healthy Diet Activity: As Tolerated - Discharge Plan Home Medications: Home Meds Amoxicillin/Potassium Clav [Augmentin 875-125 Tablet] 875 mg PO BID 07/29/17 [ History] Gabapentin [Neurontin] 900 mg PO TID 07/29/17 [History] QUEtiapine Fumarate [Seroquel] 300 mg PO BID 07/29/17 [History] Patient Handouts: Opioid Withdrawal Referrals: PCP,None [Primary Care Provider] - (Call [facility] Chemical Dependency department at to schedule a Rule 25.) - Discharge Summary/Plan Comment DC Time >30 min.: Yes Discharge Summary/Plan Comment: Admission and discharge Dx. #1. ASHD stable. #2. Drug addiction. 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 #4. Bronchitis resolving. #5. Nicotine addiction. #6. Bipolar disorder. He will start the program at [facility] next month for drug treatment. He will be discharged as soon as clearance give by [facility]. - Patient Data Vitals - Most Recent: Last Vital Signs Temp 97.6 F 08/01/17 08:50 Pulse 76 08/01/17 08:50 Resp 20 08/01/17 08:50 BP 121/63 08/01/17 08:50 Pulse Ox 96 08/01/17 08:50 Weight - Most Recent: 178 lb I&O - Last 24 hours: Intake & Output 07/31/17 08/01/17 08/01/17 22:59 06:59 14:59 Intake Total 2150 700 Output Total 1050 600 Balance 1100 100 Med Orders - Current: Current Medications Clonidine HCl (Catapres) 0.1 mg PO Q4H PRN PRN Reason: Withdrawal Symptoms Last Admin: 07/31/17 18:58 Dose: 0.1 mg Enoxaparin Sodium (Lovenox) 40 mg SUBCUT DAILY [facility] Last Admin: 08/01/17 10:30 Dose: 40 mg Gabapentin (Neurontin) 900 mg PO TID [facility] Last Admin: 08/01/17 10:29 Dose: 900 mg Sodium Chloride (Normal Saline) 1,000 mls @ 150 mls/hr IV ASDIRECTED [facility] Last Admin: 07/31/17 09:26 Dose: 150 mls/hr Lorazepam (Ativan) 0 mg PO ASDIRECTED [facility] PRN Reason: Protocol Last Admin: 08/01/17 05:15 Dose: 1 mg Nicotine (Habitrol) 7 mg TRDERM DAILY [facility] Last Admin: 08/01/17 10:27 Dose: 7 mg Ondansetron HCl (Zofran Odt) 4 mg PO Q4H PRN PRN Reason: Nausea/Vomiting Last Admin: 08/01/17 04:55 Dose: 4 mg Quetiapine Fumarate (Seroquel) 300 mg PO BID [facility] Last Admin: 08/01/17 10:27 Dose: 300 mg Ranitidine HCl (Zantac) 150 mg PO DAILY [facility] Last Admin: 08/01/17 09:55 Dose: 150 mg Sodium Chloride (Saline Flush) 10 ml FLUSH ASDIRECTED PRN PRN Reason: Keep Vein Open Discontinued Medications Albuterol (Proventil Neb Soln) 2.5 mg NEB ONETIME ONE Stop: 07/29/17 13:17 Last Admin: 07/29/17 13:49 Dose: 2.5 mg Aspirin (Aspirin) 324 mg PO ONETIME ONE Stop: 07/29/17 11:33 Last Admin: 07/29/17 12:34 Dose: Not Given Al Hydroxide/Mg Hydroxide 15 (ml/ Lidocaine HCl 15 ml) 0 ml PO ONETIME ONE Stop: 07/29/17 17:11 Last Admin: 07/29/17 17:33 Dose: 30 ml Enoxaparin Sodium (Lovenox) 40 mg SUBCUT QD [facility] Last Admin: 07/31/17 08:31 Dose: 40 mg Sodium Chloride (Normal Saline) 1,000 mls @ 500 mls/hr IV ASDIRECTED [facility] Last Admin: 07/29/17 13:18 Dose: 500 mls/hr Ceftriaxone Sodium 1 gm/ (Sodium Chloride) 50 mls @ 100 mls/hr IV Q24H [facility] Last Admin: 07/30/17 18:21 Dose: 100 mls/hr Levofloxacin/Dextrose 500 mg/ (Premix) 100 mls @ 100 mls/hr IV Q24H [facility] Last Admin: 07/30/17 20:37 Dose: 100 mls/hr Ketorolac Tromethamine (Toradol) 30 mg IVPUSH ONETIME ONE Stop: 07/29/17 13:15 Last Admin: 07/29/17 13:25 Dose: 30 mg Lorazepam (Ativan) 0.5 mg IVPUSH ONETIME ONE Stop: 07/29/17 14:42 Last Admin: 07/29/17 16:13 Dose: 0.5 mg Lorazepam (Ativan) 0 mg IV ASDIRECTED [facility] PRN Reason: Protocol Last Admin: 07/31/17 05:36 Dose: 2 mg Nitroglycerin (Nitrostat) 0.4 mg SL ONETIME ONE Stop: 07/29/17 14:47 Last Admin: 07/29/17 16:14 Dose: 0.4 mg Quetiapine Fumarate (Seroquel) Confirm Administered Dose 300 mg .ROUTE .STK-MED ONE Stop: 07/29/17 20:29 Last Admin: 07/29/17 20:42 Dose: Not Given *Q Meaningful Use (DIS) - VTE *Q VTE Criteria *Q: - Stroke *Q Stroke Criteria *Q: - AMI *Q AMI Criteria *Q:
[2017-08-01] MEDS: LORazepam 1 MG Tab PO PRN (19:53)
[2017-08-01] MEDS: cloNIDine 0.1 MG Tab PO PRN (22:34)
[2017-08-02] MEDS: LORazepam 1 MG Tab PO PRN ×2 (02:43→20:37)
[2017-08-02] MEDS: Gabapentin 300 MG Cap PO SCH ×3 (08:26→20:36)
[2017-08-02] MEDS: Pantoprazole 40 MG Tab.CR PO SCH (08:26)
[2017-08-02] MEDS: Nicotine 7 MG/24 Hr Patch TRDERM SCH (08:27)
[2017-08-02] MEDS: Enoxaparin 40 MG/0.4 ML Syringe SUBCUT SCH (08:27)
[2017-08-02] MEDS: LORazepam 1 MG Tab PO SCH ×3 (08:29→22:16)
--- NOTE | 2017-08-02 18:01 | PCM.PN ---
- General Info Date of Service: 08/02/17 Functional Status: Reports: Pain Controlled - Review of Systems General: Reports: No Symptoms HEENT: Reports: No Symptoms Pulmonary: Reports: No Symptoms Cardiovascular: Reports: No Symptoms Gastrointestinal: Reports: No Symptoms Genitourinary: Reports: No Symptoms Musculoskeletal: Reports: No Symptoms Skin: Reports: No Symptoms Neurological: Reports: No Symptoms Psychiatric: Reports: Anxiety - Patient Data Vitals - Most Recent: Last Vital Signs Temp 97.9 F 08/02/17 15:40 Pulse 84 08/02/17 15:40 Resp 18 08/02/17 15:40 BP 128/69 08/02/17 15:40 Pulse Ox 96 08/02/17 15:40 Weight - Most Recent: 181 lb 4.225 oz I&O - Last 24 Hours: Intake & Output 08/02/17 08/02/17 08/02/17 06:59 14:59 22:59 Intake Total 1000 Output Total 600 Balance 400 Lab Results Last 24 Hours: Laboratory Results - last 24 hr 08/02/17 Range/Units 09:32 Ethyl Alcohol < 3 mg/dL Med Orders - Current: Current Medications Clonidine HCl (Catapres) 0.1 mg PO Q4H PRN PRN Reason: Withdrawal Symptoms Last Admin: 08/01/17 22:34 Dose: 0.1 mg Enoxaparin Sodium (Lovenox) 40 mg SUBCUT DAILY [facility] Last Admin: 08/02/17 08:27 Dose: 40 mg Gabapentin (Neurontin) 900 mg PO TID [facility] Last Admin: 08/02/17 14:30 Dose: 900 mg Sodium Chloride (Normal Saline) 1,000 mls @ 150 mls/hr IV ASDIRECTED [facility] Last Admin: 07/31/17 09:26 Dose: 150 mls/hr Lorazepam (Ativan) 0 mg PO ASDIRECTED [facility] PRN Reason: Protocol Last Admin: 08/02/17 15:38 Dose: 1 mg Lorazepam (Ativan) 1 mg PO Q4H PRN PRN Reason: Anxiety Last Admin: 08/02/17 02:43 Dose: 1 mg Nicotine (Habitrol) 7 mg TRDERM DAILY [facility] Last Admin: 08/02/17 08:27 Dose: 7 mg Ondansetron HCl (Zofran Odt) 4 mg PO Q4H PRN PRN Reason: Nausea/Vomiting Last Admin: 08/01/17 21:23 Dose: 4 mg Pantoprazole Sodium (Protonix) 40 mg PO ACBREAKFAST [facility] Last Admin: 08/02/17 08:26 Dose: 40 mg Quetiapine Fumarate (Seroquel) 300 mg PO BID [facility] Last Admin: 08/02/17 08:28 Dose: 300 mg Sodium Chloride (Saline Flush) 10 ml FLUSH ASDIRECTED PRN PRN Reason: Keep Vein Open Discontinued Medications Albuterol (Proventil Neb Soln) 2.5 mg NEB ONETIME ONE Stop: 07/29/17 13:17 Last Admin: 07/29/17 13:49 Dose: 2.5 mg Aspirin (Aspirin) 324 mg PO ONETIME ONE Stop: 07/29/17 11:33 Last Admin: 07/29/17 12:34 Dose: Not Given Al Hydroxide/Mg Hydroxide 15 (ml/ Lidocaine HCl 15 ml) 0 ml PO ONETIME ONE Stop: 07/29/17 17:11 Last Admin: 07/29/17 17:33 Dose: 30 ml Enoxaparin Sodium (Lovenox) 40 mg SUBCUT QD [facility] Last Admin: 07/31/17 08:31 Dose: 40 mg Sodium Chloride (Normal Saline) 1,000 mls @ 500 mls/hr IV ASDIRECTED [facility] Last Admin: 07/29/17 13:18 Dose: 500 mls/hr Ceftriaxone Sodium 1 gm/ (Sodium Chloride) 50 mls @ 100 mls/hr IV Q24H [facility] Last Admin: 07/30/17 18:21 Dose: 100 mls/hr Levofloxacin/Dextrose 500 mg/ (Premix) 100 mls @ 100 mls/hr IV Q24H [facility] Last Admin: 07/30/17 20:37 Dose: 100 mls/hr Ketorolac Tromethamine (Toradol) 30 mg IVPUSH ONETIME ONE Stop: 07/29/17 13:15 Last Admin: 07/29/17 13:25 Dose: 30 mg Lorazepam (Ativan) 0.5 mg IVPUSH ONETIME ONE Stop: 07/29/17 14:42 Last Admin: 07/29/17 16:13 Dose: 0.5 mg Lorazepam (Ativan) 0 mg IV ASDIRECTED [facility] PRN Reason: Protocol Last Admin: 07/31/17 05:36 Dose: 2 mg Nitroglycerin (Nitrostat) 0.4 mg SL ONETIME ONE Stop: 07/29/17 14:47 Last Admin: 07/29/17 16:14 Dose: 0.4 mg Quetiapine Fumarate (Seroquel) Confirm Administered Dose 300 mg .ROUTE .STK-MED ONE Stop: 07/29/17 20:29 Last Admin: 07/29/17 20:42 Dose: Not Given Ranitidine HCl (Zantac) 150 mg PO DAILY [facility] Last Admin: 08/01/17 09:55 Dose: 150 mg - Exam General: Alert, Oriented HEENT: Pupils Equal, Pupils Reactive, EOMI, Mucous Membr. Moist/[place] Neck: Supple Lungs: Clear to Auscultation, Normal Respiratory Effort Cardiovascular: Regular Rate, Regular Rhythm GI/Abdominal Exam: Normal Bowel Sounds, Soft, Non-Tender, No Organomegaly, No Distention, No Abnormal Bruit, No Mass, Pelvis Stable Extremities: Normal Inspection, Normal Range of Motion, Non-Tender, No Pedal Edema, Normal Capillary Refill Peripheral Pulses: 1+: Radial (L), Radial (R) Skin: Warm, Dry, Intact Psy/Mental Status: Normal Mood - Problem List Review Problem List Initiated/Reviewed/Updated: Yes - My Orders Last 24 Hours: My Active Orders 08/01/17 18:15 LORazepam [Ativan] 1 mg PO Q4H PRN 08/02/17 08:30 Pantoprazole [ProTONIX] 40 mg PO ACBREAKFAST - Plan Plan:: Assessment/plan: #1. Suicidal risk. We are waiting for a bed in a [facility] hospital. #2. Bipolar disorder: Will continue with Seroquel. #3. Loss of right foot. having pain will continue with Gabapentin. #4. Drug Addition: Heroin 1/2 gram daily IV and or PO. Detoxed #5. History of Pneumonia. Resolved. The CXR was negative so I feel he had more of an Acute Bronchitis. Have DC antibiotics. #6. Angina- Resolved.
[2017-08-02] MEDS: traMADol 50 MG Tab PO PRN ×2 (18:51→22:17)
[2017-08-02] MEDS: Zolpidem 5 MG Tab PO PRN (20:02)
[2017-08-03] MEDS ORDERED: Aluminum Hydroxide/Magnesium Hydroxide/Simethicone Susp 30 ML Cup PO PRN (00:12)
[2017-08-03] MEDS: Pantoprazole 40 MG Tab.CR PO SCH (07:26)
[2017-08-03] MEDS: LORazepam 1 MG Tab PO SCH ×4 (08:17→19:12)
[2017-08-03] MEDS: Gabapentin 300 MG Cap PO SCH ×3 (08:18→21:02)
[2017-08-03] MEDS: Nicotine 7 MG/24 Hr Patch TRDERM SCH (08:19)
[2017-08-03] MEDS: Enoxaparin 40 MG/0.4 ML Syringe SUBCUT SCH (08:19)
--- NOTE | 2017-08-03 13:42 | PCM.PN ---
- General Info Date of Service: 08/03/17 Subjective Update: He had a lot of anxiety last night and wants a stronger dose of Ativan. Functional Status: Reports: Pain Controlled - Review of Systems General: Reports: No Symptoms HEENT: Reports: No Symptoms Pulmonary: Reports: No Symptoms Cardiovascular: Reports: No Symptoms Gastrointestinal: Reports: No Symptoms Genitourinary: Reports: No Symptoms Musculoskeletal: Reports: No Symptoms Skin: Reports: No Symptoms - Patient Data Vitals - Most Recent: Last Vital Signs Temp 97.9 F 08/03/17 08:00 Pulse 84 08/03/17 08:00 Resp 20 08/03/17 08:00 BP 112/70 08/03/17 08:00 Pulse Ox 95 08/03/17 08:00 Weight - Most Recent: 181 lb 4.225 oz I&O - Last 24 Hours: Intake & Output 08/02/17 08/03/17 08/03/17 22:59 06:59 14:59 Intake Total 1420 480 Output Total 2600 1400 Balance -1180 -920 Med Orders - Current: Current Medications Al Hydroxide/Mg Hydroxide (Mag-Al Plus) 30 ml PO Q4H PRN PRN Reason: Dyspepsia Last Admin: 08/03/17 00:28 Dose: 30 ml Clonidine HCl (Catapres) 0.1 mg PO Q4H PRN PRN Reason: Withdrawal Symptoms Last Admin: 08/01/17 22:34 Dose: 0.1 mg Enoxaparin Sodium (Lovenox) 40 mg SUBCUT DAILY [facility] Last Admin: 08/03/17 08:19 Dose: 40 mg Gabapentin (Neurontin) 900 mg PO TID [facility] Last Admin: 08/03/17 08:18 Dose: 900 mg Sodium Chloride (Normal Saline) 1,000 mls @ 150 mls/hr IV ASDIRECTED [facility] Last Admin: 07/31/17 09:26 Dose: 150 mls/hr Lorazepam (Ativan) 0 mg PO ASDIRECTED [facility] PRN Reason: Protocol Last Admin: 08/03/17 08:17 Dose: 1 mg Lorazepam (Ativan) 1 mg PO Q4H PRN PRN Reason: Anxiety Last Admin: 08/02/17 20:37 Dose: 1 mg Nicotine (Habitrol) 7 mg TRDERM DAILY [facility] Last Admin: 08/03/17 08:19 Dose: 7 mg Ondansetron HCl (Zofran Odt) 4 mg PO Q4H PRN PRN Reason: Nausea/Vomiting Last Admin: 08/01/17 21:23 Dose: 4 mg Pantoprazole Sodium (Protonix) 40 mg PO ACBREAKFAST [facility] Last Admin: 08/03/17 07:26 Dose: 40 mg Quetiapine Fumarate (Seroquel) 300 mg PO BID [facility] Last Admin: 08/03/17 08:16 Dose: 300 mg Sodium Chloride (Saline Flush) 10 ml FLUSH ASDIRECTED PRN PRN Reason: Keep Vein Open Tramadol HCl (Ultram) 50 mg PO Q6H PRN PRN Reason: Pain Last Admin: 08/02/17 22:17 Dose: 50 mg Zolpidem Tartrate (Ambien) 10 mg PO BEDTIME PRN PRN Reason: Insomnia Last Admin: 08/02/17 20:02 Dose: 10 mg Discontinued Medications Albuterol (Proventil Neb Soln) 2.5 mg NEB ONETIME ONE Stop: 07/29/17 13:17 Last Admin: 07/29/17 13:49 Dose: 2.5 mg Aspirin (Aspirin) 324 mg PO ONETIME ONE Stop: 07/29/17 11:33 Last Admin: 07/29/17 12:34 Dose: Not Given Al Hydroxide/Mg Hydroxide 15 (ml/ Lidocaine HCl 15 ml) 0 ml PO ONETIME ONE Stop: 07/29/17 17:11 Last Admin: 07/29/17 17:33 Dose: 30 ml Enoxaparin Sodium (Lovenox) 40 mg SUBCUT QD [facility] Last Admin: 07/31/17 08:31 Dose: 40 mg Sodium Chloride (Normal Saline) 1,000 mls @ 500 mls/hr IV ASDIRECTED [facility] Last Admin: 07/29/17 13:18 Dose: 500 mls/hr Ceftriaxone Sodium 1 gm/ (Sodium Chloride) 50 mls @ 100 mls/hr IV Q24H [facility] Last Admin: 07/30/17 18:21 Dose: 100 mls/hr Levofloxacin/Dextrose 500 mg/ (Premix) 100 mls @ 100 mls/hr IV Q24H [facility] Last Admin: 07/30/17 20:37 Dose: 100 mls/hr Ketorolac Tromethamine (Toradol) 30 mg IVPUSH ONETIME ONE Stop: 07/29/17 13:15 Last Admin: 07/29/17 13:25 Dose: 30 mg Lorazepam (Ativan) 0.5 mg IVPUSH ONETIME ONE Stop: 07/29/17 14:42 Last Admin: 07/29/17 16:13 Dose: 0.5 mg Lorazepam (Ativan) 0 mg IV ASDIRECTED [facility] PRN Reason: Protocol Last Admin: 07/31/17 05:36 Dose: 2 mg Nitroglycerin (Nitrostat) 0.4 mg SL ONETIME ONE Stop: 07/29/17 14:47 Last Admin: 07/29/17 16:14 Dose: 0.4 mg Quetiapine Fumarate (Seroquel) Confirm Administered Dose 300 mg .ROUTE .STK-MED ONE Stop: 07/29/17 20:29 Last Admin: 07/29/17 20:42 Dose: Not Given Ranitidine HCl (Zantac) 150 mg PO DAILY [facility] Last Admin: 08/01/17 09:55 Dose: 150 mg - Exam General: Alert, Oriented HEENT: Pupils Equal, Pupils Reactive, EOMI, Mucous Membr. Moist/[place] Neck: Supple Lungs: Clear to Auscultation, Normal Respiratory Effort Cardiovascular: Regular Rate, Regular Rhythm GI/Abdominal Exam: Normal Bowel Sounds, Soft, Non-Tender, No Organomegaly, No Distention, No Abnormal Bruit, No Mass, Pelvis Stable Extremities: Normal Inspection, Normal Range of Motion, Non-Tender, No Pedal Edema, Normal Capillary Refill Peripheral Pulses: 1+: Radial (L), Radial (R) Skin: Warm, Dry, Intact Psy/Mental Status: Alert, Normal Affect, Normal Mood - Problem List Review Problem List Initiated/Reviewed/Updated: Yes - My Orders Last 24 Hours: My Active Orders 08/02/17 18:29 traMADol [Ultram] 50 mg PO Q6H PRN 08/02/17 18:51 Zolpidem [Ambien] 10 mg PO BEDTIME PRN 08/03/17 00:12 Alum Hydrox/Mag Hydrox/Simeth [Mag-Al Plus] 30 ml PO Q4H PRN - Plan Plan:: Assessment/plan: #1. Suicidal risk. We are waiting for a bed in a [facility] hospital. #2. Bipolar disorder: Will continue with Seroquel. #3. Loss of right foot. having pain will continue with Gabapentin. #4. Drug Addition: Heroin 1/2 gram daily IV and or PO. Detoxed #5. History of Pneumonia. Resolved. The CXR was negative so I feel he had more of an Acute Bronchitis. Have DC antibiotics. #6. Angina- Resolved. #7. Insomnia with anxiety at night. Will increase Ativan.
[2017-08-03] MEDS ORDERED: LORazepam 0.5 MG Tab PO SCH (21:00)
[2017-08-03] MEDS ORDERED: LORazepam 1 MG Tab PO SCH (21:00)
[2017-08-03] MEDS: Zolpidem 5 MG Tab PO PRN (21:02)
[2017-08-04] MEDS: Pantoprazole 40 MG Tab.CR PO SCH (08:18)
[2017-08-04] MEDS: Gabapentin 300 MG Cap PO SCH ×2 (08:18→14:39)
[2017-08-04] MEDS: Enoxaparin 40 MG/0.4 ML Syringe SUBCUT SCH (08:18)
[2017-08-04] MEDS: Nicotine 7 MG/24 Hr Patch TRDERM SCH (08:18)
[2017-08-04] MEDS: LORazepam 1 MG Tab PO PRN (11:00)
[2017-08-04 14:42] VITALS: BP 123/85
--- NOTE | 2017-08-04 17:30 | PCM.PN ---
- General Info Date of Service: 08/04/17 Subjective Update: He has done well all day and will be going home tonight. Functional Status: Reports: Pain Controlled - Review of Systems General: Reports: No Symptoms HEENT: Reports: No Symptoms Pulmonary: Reports: No Symptoms Cardiovascular: Reports: No Symptoms Gastrointestinal: Reports: No Symptoms Genitourinary: Reports: No Symptoms Musculoskeletal: Reports: No Symptoms Skin: Reports: No Symptoms Neurological: Reports: No Symptoms Psychiatric: Reports: Anxiety - Patient Data Vitals - Most Recent: Last Vital Signs Temp 100.4 F 08/04/17 14:40 Pulse 89 08/04/17 14:40 Resp 16 08/04/17 14:40 BP 123/85 08/04/17 14:40 Pulse Ox 98 08/04/17 14:40 Weight - Most Recent: 184 lb 8.43 oz I&O - Last 24 Hours: Intake & Output 08/04/17 08/04/17 08/04/17 06:59 14:59 22:59 Intake Total 1800 Output Total 1000 600 Balance -1000 -600 1800 Med Orders - Current: Current Medications Al Hydroxide/Mg Hydroxide (Mag-Al Plus) 30 ml PO Q4H PRN PRN Reason: Dyspepsia Last Admin: 08/03/17 00:28 Dose: 30 ml Clonidine HCl (Catapres) 0.1 mg PO Q4H PRN PRN Reason: Withdrawal Symptoms Last Admin: 08/01/17 22:34 Dose: 0.1 mg Enoxaparin Sodium (Lovenox) 40 mg SUBCUT DAILY [facility] Last Admin: 08/04/17 08:18 Dose: 40 mg Gabapentin (Neurontin) 900 mg PO TID [facility] Last Admin: 08/04/17 14:39 Dose: 900 mg Sodium Chloride (Normal Saline) 1,000 mls @ 150 mls/hr IV ASDIRECTED [facility] Last Admin: 07/31/17 09:26 Dose: 150 mls/hr Lorazepam (Ativan) 0 mg PO ASDIRECTED [facility] PRN Reason: Protocol Last Admin: 08/03/17 19:12 Dose: 2 mg Lorazepam (Ativan) 1 mg PO Q4H PRN PRN Reason: Anxiety Last Admin: 08/04/17 11:00 Dose: 1 mg Lorazepam (Ativan) 2 mg PO BEDTIME [facility] Last Admin: 08/04/17 08:07 Dose: Not Given Nicotine (Habitrol) 7 mg TRDERM DAILY [facility] Last Admin: 08/04/17 08:18 Dose: 7 mg Ondansetron HCl (Zofran Odt) 4 mg PO Q4H PRN PRN Reason: Nausea/Vomiting Last Admin: 08/01/17 21:23 Dose: 4 mg Pantoprazole Sodium (Protonix) 40 mg PO ACBREAKFAST [facility] Last Admin: 08/04/17 08:18 Dose: 40 mg Quetiapine Fumarate (Seroquel) 300 mg PO BID [facility] Last Admin: 08/04/17 08:18 Dose: 300 mg Sodium Chloride (Saline Flush) 10 ml FLUSH ASDIRECTED PRN PRN Reason: Keep Vein Open Tramadol HCl (Ultram) 50 mg PO Q6H PRN PRN Reason: Pain Last Admin: 08/02/17 22:17 Dose: 50 mg Zolpidem Tartrate (Ambien) 10 mg PO BEDTIME PRN PRN Reason: Insomnia Last Admin: 08/03/17 21:02 Dose: 10 mg Discontinued Medications Albuterol (Proventil Neb Soln) 2.5 mg NEB ONETIME ONE Stop: 07/29/17 13:17 Last Admin: 07/29/17 13:49 Dose: 2.5 mg Aspirin (Aspirin) 324 mg PO ONETIME ONE Stop: 07/29/17 11:33 Last Admin: 07/29/17 12:34 Dose: Not Given Al Hydroxide/Mg Hydroxide 15 (ml/ Lidocaine HCl 15 ml) 0 ml PO ONETIME ONE Stop: 07/29/17 17:11 Last Admin: 07/29/17 17:33 Dose: 30 ml Enoxaparin Sodium (Lovenox) 40 mg SUBCUT QD [facility] Last Admin: 07/31/17 08:31 Dose: 40 mg Sodium Chloride (Normal Saline) 1,000 mls @ 500 mls/hr IV ASDIRECTED [facility] Last Admin: 07/29/17 13:18 Dose: 500 mls/hr Ceftriaxone Sodium 1 gm/ (Sodium Chloride) 50 mls @ 100 mls/hr IV Q24H [facility] Last Admin: 07/30/17 18:21 Dose: 100 mls/hr Levofloxacin/Dextrose 500 mg/ (Premix) 100 mls @ 100 mls/hr IV Q24H [facility] Last Admin: 07/30/17 20:37 Dose: 100 mls/hr Ketorolac Tromethamine (Toradol) 30 mg IVPUSH ONETIME ONE Stop: 07/29/17 13:15 Last Admin: 07/29/17 13:25 Dose: 30 mg Lorazepam (Ativan) 0.5 mg IVPUSH ONETIME ONE Stop: 07/29/17 14:42 Last Admin: 07/29/17 16:13 Dose: 0.5 mg Lorazepam (Ativan) 0 mg IV ASDIRECTED [facility] PRN Reason: Protocol Last Admin: 07/31/17 05:36 Dose: 2 mg Nitroglycerin (Nitrostat) 0.4 mg SL ONETIME ONE Stop: 07/29/17 14:47 Last Admin: 07/29/17 16:14 Dose: 0.4 mg Quetiapine Fumarate (Seroquel) Confirm Administered Dose 300 mg .ROUTE .STK-MED ONE Stop: 07/29/17 20:29 Last Admin: 07/29/17 20:42 Dose: Not Given Ranitidine HCl (Zantac) 150 mg PO DAILY [facility] Last Admin: 08/01/17 09:55 Dose: 150 mg - Exam General: Alert, Oriented HEENT: Pupils Equal, Pupils Reactive, EOMI, Mucous Membr. Moist/[place] Neck: Supple Lungs: Clear to Auscultation, Normal Respiratory Effort Cardiovascular: Regular Rate, Regular Rhythm GI/Abdominal Exam: Normal Bowel Sounds, Soft, Non-Tender, No Organomegaly, No Distention, No Abnormal Bruit, No Mass, Pelvis Stable Extremities: Other ( partial loss of his right foot.) - Problem List Review Problem List Initiated/Reviewed/Updated: Yes - My Orders Last 24 Hours: My Active Orders 08/03/17 21:00 LORazepam [Ativan] 2 mg PO BEDTIME - Plan Plan:: Assessment/plan: #1. Suicidal risk. Stable presently and cleared by Dr. Geoff Preciado and no risk for danger to himself. #2. Bipolar disorder: Will continue with Seroquel. #3. Loss of right foot. having pain will continue with Gabapentin. #4. Drug Addition: Heroin 1/2 gram daily IV and or PO. Detoxed #5. History of Pneumonia. Resolved. The CXR was negative so I feel he had more of an Acute Bronchitis. Have DC antibiotics. #6. Angina- Resolved. #7. Insomnia --stable. Home with the stepfather today.
--- NOTE | 2017-08-05 15:04 | DISCH ---
ADDENDUM DISCHARGE DIAGNOSES: 1. Suicidal, resolved. 2. Bipolar disorder. 3. Loss of right foot. 4. Drug addiction, treated. 5. Bronchitis, resolved. 6. Noncardiac angina. 7. Insomnia caused by anxiety.
== END 2017-08-04 17:36 | disposition home or self-care (01) | DRG 311 ==
LOC: JP.ED 11:18 → JP.MS 18:23 → JP.ICU 07-31 18:16
PROVIDERS: ADMIT Internal Medicine; ATTEND Internal Medicine
DX: I20.8 Other forms of angina pectoris (principal); R45.851 Suicidal ideations; F11.23 Opioid dependence with withdrawal; F17.210 Nicotine dependence, cigarettes, uncomplicated; J20.9 Acute bronchitis, unspecified; F31.9 Bipolar disorder, unspecified; Z71.51 Drug abuse counseling and surveillance of drug abuser; I25.2 Old myocardial infarction; F41.9 Anxiety disorder, unspecified; G47.00 Insomnia, unspecified; Z89.431 Acquired absence of right foot; Z87.01 Personal history of pneumonia (recurrent); F12.20 Cannabis dependence, uncomplicated; Z88.5 Allergy status to narcotic agent
CPT/HCPCS: 36415; 71020; 71020-26; 80048; 80053; 80305; 81001; 82550; 84484; 85025; 86140; 93005; 93010; 94640; 94644; 94667; 96361; 96374; 96375; 99284; 99285-25; A9270-GY; G0480; J0696; J1650; J1885; J1956; J2060; J7040; J7050